=== PATIENT | female | born 1995 | race Caucasian/White ===

== ENCOUNTER 2019-11-19 16:03 | Outpatient (RCR) | payer BC, SELFPAY ==
[2019-11-19 16:58] LABS: Beta HCG Quantitative < 2.39 mIU/ML
== END 2020-02-17 23:59 | disposition home or self-care (01) ==
LOC: ANHLAB 16:03
PROVIDERS: PCP Pediatrics; Visit Provider Advanced Practice Midwife
DX: O20.0 Threatened abortion (principal); Z3A.00 Weeks of gestation of pregnancy not specified
CPT/HCPCS: 36415; 84702

== ENCOUNTER 2020-07-07 11:57 | Observation (INO) | payer BC, OTHER, SELFPAY ==
[2020-07-07] VITALS (11 sets, daily range): BP systolic 115–118; BP diastolic 62–69; PULSE 98–111; O2SAT 100; BMI 24.5
[2020-07-07 12:13] LABS: Glucose Point of Care 110 (65-105)
--- NOTE | 2020-07-07 12:29 | OBADM ---
This patient, Guerda Lyn, admitted to the OB room OB Post 116 for observation. Patient/family oriented to hospital policies and general routines including ID bracelet, bed and alarms, visiting hours, pain management, procedures, bathroom and other care routines, personal items, smoking policy, room service/diet, and visiting hours. Patient/Family are encouraged to report perceived risks to care and to ask questions if they do not understand what they are told or what they should do.
--- NOTE | 2020-07-07 12:32 | PC.NURSE ---
1213- Spoke with Mamadou Bird CNM regarding patient admission for observation. patient states she was walking around [address] and became lightheaded, dizzy and short of breath. Vitals all WNL. Blood sugar 110. Patient states she drank some orange juice after leaving the store and felt a little better. Per Mamadou Bird, monitor patient for duration of NST and discharge to home after. patient to call the office if it happens again.
--- NOTE | 2020-07-09 17:47 | PM.OBTRLD ---
OB - Triage/Final Diagnosis Visit Information Date of evaluation: 07/07/20 Evaluation Laboratory results: Laboratory Tests 07/07/20 12:10 POC Capillary Glucose 110
--- NOTE | 2020-07-10 07:43 | PM.OBTRLD ---
OB - Triage/Final Diagnosis Visit Information Date of evaluation: 07/07/20 Reason for evaluation: decreased movement Evaluation Laboratory results: Laboratory Tests 07/07/20 12:10 POC Capillary Glucose 110
== END 2020-07-07 13:00 | disposition home or self-care (01) ==
PROVIDERS: Admitting Provider Obstetrics & Gynecology; PCP Pediatrics; Visit Provider Obstetrics & Gynecology
DX: O36.8190 Decreased fetal movements, unspecified trimester, not applicable or unspecified (principal); Z3A.00 Weeks of gestation of pregnancy not specified
CPT/HCPCS: G0378; G0379

== ENCOUNTER 2020-07-24 04:20 | Observation (INO) | payer BC, OTHER, SELFPAY ==
[2020-07-24 04:33] VITALS: TEMP 36.6
[2020-07-24 04:34] VITALS: BP 122/74; PULSE 125
--- NOTE | 2020-07-24 04:43 | OBADM ---
This patient, Guerda Lyn, admitted to the OB room OB Post 117 for observation. Patient/family oriented to hospital policies and general routines including ID bracelet, bed and alarms, visiting hours, pain management, procedures, bathroom and other care routines, personal items, smoking policy, room service/diet, and visiting hours. Patient/Family are encouraged to report perceived risks to care and to ask questions if they do not understand what they are told or what they should do.
[2020-07-24 04:45] VITALS: BP 112/74; PULSE 131; BMI 26.3
[2020-07-24 05:00] VITALS: BP 115/72; PULSE 135
[2020-07-24 05:10] LABS: Add Urine Microscopic? YES; Appearance Urine Cloudy (Clear); Bacteria Urine Trace /hpf; Bilirubin Urine Negative (Negative); Blood Urine 1+ (Negative); Color Urine Straw (Yellow); Glucose Urine UA Negative (Negative); Ketones Urine Negative (Negative); Leukocyte Esterase Ur Trace LEU/UL (NEGATIVE); Nitrate Urine Negative (Negative); Protein Urine Negative (Negative); RBC Urine 0-2 /hpf (0-2); Specific Grav Ur 1.006 (1.001-1.035); Squamous Epithelial Cell Urine Many /hpf (Few); Urobilinogen Urine Negative mg/dL (<2.0)
[2020-07-24 05:15] VITALS: BP 114/68; PULSE 100
[2020-07-24 07:28] VITALS: BP 115/73; PULSE 92
--- NOTE | 2020-07-24 07:59 | PM.IMHP ---
H&P: HPI History of Present Illness Date/Time: 07/24/20 07:59 Chief complaint: Back pain Narrative: Guerda Lyn is a 24 year old femaleGravida 2 para 1001 at 35 weeks gestation who presents for uterine pain. She has repetitive uterine cramping sensation. She denies any loss of fluid or vaginal bleeding. Reports good movement. She denies any nausea, vomiting, fever, chills. She denies any urinary symptoms. She denies any headaches, blurry vision, epigastric pain. Review of Systems Constitutional: Constitutional: Reports no additional constitutional complaints, Denies fatigue, Denies headache(s), Denies lethargy and Denies weakness Eyes: Eyes: Reports no additional eye complaints, Denies blurry vision and Denies photophobia ENT: Reports as per HPI, Denies headache(s) and Denies neck pain Cardiovascular: Cardiovascular: Denies chest pain, Denies diaphoresis, Denies leg edema, Denies palpitations and Denies dyspnea Respiratory: Respiratory: Denies hemoptysis, Denies dyspnea and Denies wheezing Gastrointestinal: Gastrointestinal: Denies abdominal pain, Denies melena, Denies bloating, Denies hematochezia, Denies nausea and Denies vomiting Genitourinary: Genitourinary: Reports no additional female genitourinary complaints Musculoskeletal: Musculoskeletal: Denies joint swelling, Denies neck pain, Denies numbness and Denies stiffness Neurologic: Denies Abnormal speech present, Denies confusion, Denies headache(s), Denies numbness and Denies weakness Psychiatric: Psychiatric: Denies anxiety, Denies confusion, Denies depression, Denies homicidal ideation and Denies suicidal ideation Endocrine: Endocrine: Denies fatigue and Denies palpitations Allergic/Immunologic: Allergic/Immunologic: Denies wheezing Meds Home Medications and Allergies Home Medications Medication Instructions Recorded Confirmed Type Daily 1 pkg PO DAILY 07/07/20 07/07/20 History Allergies Allergy/AdvReac Type Severity Reaction Status Date / Time No Known Allergies Allergy Unverified 12/13/12 08:58 Vital Signs Vital Signs - 24 hr 07/24/20 04:33 07/24/20 04:34 07/24/20 04:45 Temperature 98 F Pulse Rate 125 H 131 H Blood Pressure 122/74 112/74 07/24/20 05:00 07/24/20 05:15 07/24/20 07:28 Temperature Pulse Rate 135 H 100 92 Blood Pressure 115/72 114/68 115/73 Exam Const: General: healthy appearing, comfortable and no acute distress; No confusion Orientation/consciousness: No confusion Eyes: Direct Ophthalmoscopy: No photophobia Resp: Auscultation: clear to auscultation bilaterally, no rales, no rhonchi and no wheezes Cardio: Rate: regular rate Heart sounds: no click, no murmurs and no rubs GI: Inspection: non-distended GI Palp: No abdominal tenderness Auscultation: normal bowel sounds Neuro: General: No confusion Speech: No Abnormal speech present Extrem: General: normal to inspection, no pedal edema and no calf tenderness H&P: Results Labs Labs: Urine 07/24/20 Range/Units 04:55 Urine Color Straw (Yellow) Urine Appearance Cloudy H (Clear) Urine pH 7.0 (5.0-9.0) Ur Specific [place] 1.006 (1.001-1.035) Urine Protein Negative (Negative) mg/dL Urine Glucose (UA) Negative (Negative) mg/dL Assessment and Plan Assessment and plan (1) contractions: Code(s): O47.9 - False labor, unspecified Status: Acute Assessment and Plan: this patient is a 24-year-old 2 para 1001 at 35 weeks gestation with uterine cramping. There is no cervical change. Her cervix is closed. She has reassuring status. She may have urinary tract infection. Will treat as outpatient. She will follow up in 4 days.
== END 2020-07-24 08:38 | disposition home or self-care (01) ==
PROVIDERS: Admitting Provider Obstetrics & Gynecology; Visit Provider Obstetrics & Gynecology
DX: O47.03 False labor before 37 completed weeks of gestation, third trimester (principal); O99.89 Other specified diseases and conditions complicating pregnancy, childbirth and the puerperium; M54.9 Dorsalgia, unspecified; Z3A.35 35 weeks gestation of pregnancy
CPT/HCPCS: 81001; 87086; 87088; G0378; G0379

== ENCOUNTER 2020-08-15 09:56 | Inpatient (IN) | payer BC, OTHER, SELFPAY ==
[2020-08-15] VITALS (60 sets, daily range): BP systolic 74–191; BP diastolic 34–166; PULSE 25–244; RESP 16–20; TEMP 36.1–37.1; O2SAT 71–100; BMI 26.2
--- NOTE | 2020-08-15 10:32 | LDADM ---
This patient, Guerda Lyn, was admitted to Labor/Delivery/Recovery 120 on 08/15/20 at 09:56. Plans for primary section, pain management and were discussed with patient. Patient/family oriented to hospital policies and general routines including ID bracelet, bed and alarms, visiting hours, pain management, procedures, bathroom and other care routines, personal items, smoking policy, room service/diet and guest tray routines, infant security routines, and visiting hours. Patient/Family are encouraged to report perceived risks to care and to ask questions if they do not understand what they are told or what they should do. See OBIX for further documentation.
[2020-08-15] MEDS: LACTATED RINGERS 1,000 ML 125 ML IV CONT ×2 (10:37→11:48)
[2020-08-15 10:53] LABS: Basophils Percent Auto 0.3 % (0.2-1.2); Eosinophils Percent Auto 0.3 % (0-4.4); Hemoglobin 10.7 g/dL (12.0-15.0); Immature Granulocyte Absolute 0.03 K/mm3 (0.00-0.031); Immature Granulocyte Percent A 0.4 % (0-0.5); Lymphocytes Absolute Auto 1.25 K/mm3 (0.9-3.2); Lymphocytes Percent Auto 15.9 % (18.3-44.2); Mean Corpuscular HGB Conc 31.5 g/dl (32-36); Mean Corpuscular Hemoglobin 24.2 pg (26-34); Mean Corpuscular Volume 76.7 fl (80-100); Monocytes Absolute Auto 0.5 K/mm3 (0.1-0.6); Monocytes Percent Auto 6.6 % (2.6-8.5); Neutrophils Percent Auto 76.5 % (45.5-73.1); Platelet Count Result 226 k/mm3 (150-375); Red Blood Count 4.43 M/mm3 (4.2-5.4); White Blood Count 7.9 K/mm3 (4.5-10.0)
--- NOTE | 2020-08-15 11:06 | WPDANESEPPF ---
Anes - Initial Pre Proc Eval Procedure: Operation Date: 08/15/20 12:00 Proposed Procedures p Primary Section - China Simmons MD Date/Time: 08/15/20 11:06 Surgeon: China Simmons MD Pre Op Diagnosis: Scheduled C Section Patient Data Age: 25 Gender: F Height: 5 ft 3 in Weight: 67 kg Last Vital Signs Pulse 118 H 08/15/20 10:45 BP 115/74 08/15/20 10:45 Allergies Allergy/AdvReac Type Severity Reaction Status Date / Time No Known Allergies Allergy Unverified 12/13/12 08:58 Home Medications Medication Instructions Recorded Confirmed Type Daily 1 pkg PO DAILY 07/07/20 07/24/20 History nitrofurantoin monohyd/m-cryst 100 mg PO Q12H 7 Days #14 cap 07/24/20 07/24/20 Rx [Macrobid] Laboratory Tests 08/15/20 08/15/20 10:21 10:21 WBC 7.9 K/mm3 K/mm3 (4.5-10.0) RBC 4.43 M/mm3 M/mm3 (4.2-5.4) Hgb 10.7 g/dL L g/dL (12.0-15.0) Hct 34.0 % L % (37.0-47.0) MCV 76.7 fl L fl (80-100) MCH 24.2 pg L pg (26-34) MCHC 31.5 g/dl L g/dl (32-36) RDW 14.0 % % (11.5-14.5) Plt Count 226 k/mm3 k/mm3 (150-375) MPV 10.0 fl fl (7.4-10.4) Immature Gran % (Auto) 0.4 % % (0-0.5) Neut % (Auto) 76.5 % H % (45.5-73.1) Lymph % (Auto) 15.9 % L % (18.3-44.2) [place] % (Auto) 6.6 % % (2.6-8.5) Eos % (Auto) 0.3 % % (0-4.4) Baso % (Auto) 0.3 % % (0.2-1.2) Lymph # (Auto) 1.25 K/mm3 K/mm3 (0.9-3.2) [place] # (Auto) 0.5 K/mm3 K/mm3 (0.1-0.6) Eos # (Auto) 0.0 K/mm3 K/mm3 (0-0.3) Baso # (Auto) 0.0 K/mm3 K/mm3 (0.0-0.1) Abs Immat Gran (auto) 0.03 K/mm3 K/mm3 (0.00-0.031) Absolute Neuts (auto) 6.0 K/mm3 K/mm3 (1.3-6.7) Absolute Nucleated RBC 0.0 K/mm3 K/mm3 (0.0-0.012) Nucleated RBC % 0.0 % % (0.0-0.2) RPR Pending Patient hx anesthesia problems: none Family hx anesthesia problems: none PMFSH Family History Family History Father Diabetes mellitus Social History Social History Smoking status: Former smoker Tobacco type: cigarettes and e-cigarettes/vaping Substance use: never Gender identity (if verbalized by the patient): Female Spiritual care concerns: No Anes - Eval Final PreProcedure Day of Procedure 08/15/20 11:06 Patient weight: normal Heart: regular rate and rhythm Lungs: clear to auscultation Airway: Mallampati scale class II Neurological: alert and oriented Last oral intake: >/= 8 hours ASA classification: II Emergent: no Anesthetic plan: proceed Anesthesia type and monitoring: regional spinal and standard monitoring Informed Consent: The patient's anesthetic plan and its attendant risks and benefits were discussed with the patient/family/POA. Questions were solicited and answers provided to the satisfaction of the patient/family/POA.
[2020-08-15] MEDS: ceFAZolin 2 GM/D5W 50 ML 2 GM/50 ML BAG IVPB (12:23)
--- NOTE | 2020-08-15 13:31 | P.OP_ITS ---
Procedure Note - Detailed Date of procedure: 08/15/20 Pre-op diagnosis: Scheduled C Section Term gestation, Breech Post-op diagnosis: same Procedure performed: low-transverse delivery Description of procedure: The patient was taken the operating room. She was prepped and draped in the dorsal supine position with leftward tilt after induction of spinal anesthetic. When anesthesia was found to be adequate a low- transverse skin incision was made and carried down to the level the fascia with the knife. The fascial incision was made at the midline with a scalpel. The fascial incision was extended laterally with Bello scissors. The fascia was tented upward superior and inferior with Joshua clamps. The rectus muscles were dissected off bluntly. The rectus muscles at the midline. The preper itoneal fat was dissected bluntly at the superior aspect of the separate the rectus muscles. The peritoneal cavity was entered bluntly in the same area. The peritoneal incision was extended superior and inferior with good visualization of bladder. Bladder blade was inserted. A low-transverse incision was made on the uterus with the scalpel. It was carried down the level of the amniotic cavity with a knife. The amniotic cavity bluntly. The uterine incision was made laterally with blunt traction. The infant was delivered. The cord was clamped and cut. The infant was handed off to waiting pediatric staff. Cord bloods were obtained. The placenta was removed manually. The uterus was exteriorized. Uterus cleared of all clots and debris. Uterus closed in 0 Vicryl in a running locked fashion. An imbricating layer of 0 Vicryl was also placed on the to bolster the closure. The uterus was returned to the abdomen. The gutters were cleared of all clots and debris. The fascia was closed 0 Vicryl in a running fashion. Subcutaneous tissue was irrigated and bleeding areas were cauterized. The skin was closed with subcuticular absorbable shantal. The incision was covered with derma mckenzie. The patient tolerated the procedure well. She was taken recovery room stable condition. Sponge, lap, needle counts were correct x2. Anesthesia: spinal Surgeon: China Simmons MD Estimated blood loss (mL): 740 Drains: No Packing: No Pathology: none sent Complications: No immediate complications Condition: stable Disposition: floor Findings: Normal maternal anatomy. Average size infant with normal Apgars, elaine breech
[2020-08-15] MEDS: OXYTOCIN 30 UNITS/NS 500 ML 30 UNITS/500 ML BAG 125 UNITS IV CONT (13:57)
[2020-08-15] MEDS: miSOPROStol 200 MCG TABLET 1000 MCG RECTAL (14:24)
--- NOTE | 2020-08-15 15:43 | OBPPTRN ---
Patient transferred to post room # 291 via bed. Support person present. Oriented to unit, room, information board, rooming in, admission packet and security measures. Patient verbalizes understanding.
[2020-08-15] MEDS: HYDROcodone/acetaminophen (*CRX) 5-325 MG TABLET 1 TAB PO ×2 (17:13→23:40)
[2020-08-15] MEDS: DEXTROSE 5%/0.45% SOD CHL 1,000 ML 125 ML IV CONT (18:16)
[2020-08-15] MEDS: IBUPROFEN 600 MG TABLET PO (23:40)
[2020-08-16 04:50] VITALS: BP 111/82; PULSE 91; RESP 16; TEMP 36.8
[2020-08-16] MEDS: IBUPROFEN 600 MG TABLET PO ×3 (04:57→19:04)
[2020-08-16] MEDS: HYDROcodone/acetaminophen (*CRX) 5-325 MG TABLET 1 TAB PO ×5 (04:57→19:03)
[2020-08-16 06:03] LABS: Basophils Percent Auto 0.2 % (0.2-1.2); Eosinophils Percent Auto 0.1 % (0-4.4); Hemoglobin 7.2 g/dL (12.0-15.0); Immature Granulocyte Absolute 0.05 K/mm3 (0.00-0.031); Immature Granulocyte Percent A 0.4 % (0-0.5); Lymphocytes Absolute Auto 1.39 K/mm3 (0.9-3.2); Lymphocytes Percent Auto 12.3 % (18.3-44.2); Mean Corpuscular HGB Conc 31.3 g/dl (32-36); Mean Corpuscular Volume 76.7 fl (80-100); Mean Platelet Volume 10.2 fl (7.4-10.4); Monocytes Absolute Auto 0.9 K/mm3 (0.1-0.6); Monocytes Percent Auto 7.7 % (2.6-8.5); Neutrophils Percent Auto 79.3 % (45.5-73.1); Platelet Count Result 175 k/mm3 (150-375); Red Cell Distribution Width 13.9 % (11.5-14.5); White Blood Count 11.3 K/mm3 (4.5-10.0)
[2020-08-16 08:15] VITALS: BP 119/68; PULSE 93; RESP 12; TEMP 36.6; O2SAT 100
[2020-08-16] MEDS: DOCUSATE SODIUM 100 MG CAPSULE PO ×2 (08:15→16:10)
[2020-08-16] MEDS: POLYSACCHARIDE IRON COMPLEX 150 MG CAPSULE PO ×2 (08:15→16:10)
[2020-08-16] MEDS: MULTIVIT/MIN/PREN/FOL AC/IRON TABLET 1 TAB PO (08:15)
--- NOTE | 2020-08-16 08:25 | P.PNOB_ITS ---
OB - PN: Subj Subjective Date/time seen: 08/16/20 08:25 Interval history: had some increased bleeding post delivery, doing well Patient comments: no complaints [place] baby status: doing well OB - PN: Obj Data Labs CBC & Chem 7: 08/16/20 05:01 Labs: Laboratory Results - last 24 hr 08/15/20 08/15/20 08/16/20 10:21 10:21 05:01 WBC 7.9 11.3 H RBC 4.43 3.00 L Hgb 10.7 L 7.2 L D Hct 34.0 L 23.0 L MCV 76.7 L 76.7 L MCH 24.2 L 24.0 L MCHC 31.5 L 31.3 L RDW 14.0 13.9 Plt Count 226 175 MPV 10.0 10.2 Immature Gran % (Auto) 0.4 0.4 Neut % (Auto) 76.5 H 79.3 H Lymph % (Auto) 15.9 L 12.3 L [place] % (Auto) 6.6 7.7 Eos % (Auto) 0.3 0.1 Baso % (Auto) 0.3 0.2 Lymph # (Auto) 1.25 1.39 [place] # (Auto) 0.5 0.9 H Eos # (Auto) 0.0 0.0 Baso # (Auto) 0.0 0.0 Abs Immat Gran (auto) 0.03 0.05 H Absolute Neuts (auto) 6.0 9.0 H Absolute Nucleated RBC 0.0 0.0 Nucleated RBC % 0.0 0.0 Blood Type A Positive Antibody Screen Negative OB - PN A/P Plan day: 1 Plan: routine care Time Spent With Patient Time: Total time spent is greater than 50% in coordination of care (as documented) at patient's floor/unit and/or counseling patient: Exam Const: General: comfortable Resp: Effort & Inspection: normal respiratory effort Psych: Appearance: grossly normal Affect: normal affect Attitude: cooperative Judgement: Good judgement present (Psych)
[2020-08-16 12:00] VITALS: BP 128/63; PULSE 84; RESP 14; TEMP 36.8; O2SAT 100
[2020-08-16] MEDS: LANOLIN (LANSINOH) 7.5 GM CREAM 1 APPLIC TOPICAL (12:09)
--- NOTE | 2020-08-16 12:32 | WPDANLDPN2 ---
Anes-Prog Note L&D Date/Time: 08/16/20 12:32 Comfortable throughout: labor and section Neuraxial method: epidural Epidural/Spinal procedure site: clean & non-tender Neuro status: Neuro function grossly intact. Cardiovascular status: normal Respiratory status: normal Airway patency: baseline Mental status: baseline Post-Op hydration status: normal Vital Signs: Last Vital Signs Temp 36.6 C 08/16/20 08:15 Pulse 93 08/16/20 08:15 Resp 12 08/16/20 08:15 BP 119/68 08/16/20 08:15 Pulse Ox 100 08/16/20 08:15 Pain score (VAS): 0/10. Patient resting in bed at time of assessment, appears comfortable. Support person at bedside. No addition concerns or issues addressed by patient at time of assessment. I/O: Intake & Output 08/15/20 08/16/20 08/16/20 23:59 07:59 15:59 Intake Total 1300 1200 Output Total 1800 1300 550 Balance -500 -100 -550 Post-procedural complaints: none and nausea (relief with PRN medication) Patient feedback: Patient satisfied with anesthetic care.
--- NOTE | 2020-08-16 12:34 | WPDANLDNPN2 ---
Anes-Prog Note L&D-Neuraxial Date/Time: 08/16/20 12:34 Neuraxial medications: epidural PF morphine Opiod-related complaints: nausea (nausea, relief with medication. ) Patient feedback: Patient satisfied with post-operative pain management.
--- NOTE | 2020-08-16 12:35 | WPDANLDNPN2 ---
Anes-Prog Note L&D-Neuraxial Date/Time: 08/16/20 12:35 Neuraxial medications: intrathecal PF morphine Opiod-related complaints: nausea Patient feedback: Patient satisfied with post-operative pain management.
[2020-08-16 18:50] VITALS: BP 107/54; PULSE 96; RESP 16; TEMP 36.7
[2020-08-17] MEDS: HYDROcodone/acetaminophen (*CRX) 5-325 MG TABLET 1 TAB PO ×2 (01:45→09:36)
[2020-08-17] MEDS: IBUPROFEN 600 MG TABLET PO ×2 (01:45→09:36)
[2020-08-17 07:30] VITALS: BP 107/65; PULSE 84; RESP 20; TEMP 36.6
[2020-08-17] MEDS: DOCUSATE SODIUM 100 MG CAPSULE PO (09:35)
[2020-08-17] MEDS: POLYSACCHARIDE IRON COMPLEX 150 MG CAPSULE PO (09:35)
[2020-08-17] MEDS: MULTIVIT/MIN/PREN/FOL AC/IRON TABLET 1 TAB PO (09:36)
[2020-08-17] MEDS: TETANUS,DIPHTHERIA,AC PERTUSSIS ADULT (0.5 ML) BOOSTRIX IM (09:37)
--- NOTE | 2020-08-17 09:48 | PM.OBPNVD ---
OB - PN: Subj Subjective Date/time seen: 08/17/20 09:48 Interval history: had some increased bleeding post delivery, doing well Patient comments: no complaints [place] baby status: doing well OB - PN: Obj Data Labs CBC & Chem 7: 08/16/20 05:01 OB - PN A/P Plan day: 2 Plan: discharge home Time Spent With Patient Time: Total time spent is greater than 50% in coordination of care (as documented) at patient's floor/unit and/or counseling patient: Pt desires discharge today Exam Const: General: comfortable Resp: Effort & Inspection: normal respiratory effort Psych: Appearance: grossly normal Affect: normal affect Attitude: cooperative Judgement: Good judgement present (Psych)
[2020-08-18 06:52] LABS: Rapid Plasma Reagin Non-Reactive (NonReactive)
[2020-08-19 11:20] VITALS: BP 118/78; PULSE 84; RESP 18; TEMP 36.9
--- NOTE | 2020-09-12 07:33 | PM.IMHP ---
H&P: HPI History of Present Illness Date/Time: 09/12/20 07:33 Chief complaint: Scheduled C Section Narrative: Guerda Lyn is a 25 year old female , multiparous, at 39 weeks gestation who presents for a repeat delivery. She has a history of previous delivery. She denies any loss of fluid, vaginal bleeding, contractions. She denies any headache, blurry vision, epigastric pain. She denies any chest pain or shortness of breath. She denies any nausea, vomiting, fever, chills. Review of Systems Constitutional: Constitutional: Reports no additional constitutional complaints, Denies fatigue, Denies headache(s), Denies lethargy and Denies weakness Eyes: Eyes: Reports no additional eye complaints, Denies blurry vision and Denies photophobia ENT: Reports as per HPI, Denies headache(s) and Denies neck pain Cardiovascular: Cardiovascular: Denies chest pain, Denies diaphoresis, Denies leg edema, Denies palpitations and Denies dyspnea Respiratory: Respiratory: Denies hemoptysis, Denies dyspnea and Denies wheezing Gastrointestinal: Gastrointestinal: Denies abdominal pain, Denies melena, Denies bloating, Denies hematochezia, Denies nausea and Denies vomiting Genitourinary: Genitourinary: Reports no additional female genitourinary complaints Musculoskeletal: Musculoskeletal: Denies joint swelling, Denies neck pain, Denies numbness and Denies stiffness Neurologic: Denies Abnormal speech present, Denies confusion, Denies headache(s), Denies numbness and Denies weakness Psychiatric: Psychiatric: Denies anxiety, Denies confusion, Denies depression, Denies homicidal ideation and Denies suicidal ideation Endocrine: Endocrine: Denies fatigue and Denies palpitations Allergic/Immunologic: Allergic/Immunologic: Denies wheezing [facility] Family History Family History Father Diabetes mellitus Social History Social History Smoking status: Former smoker Tobacco type: cigarettes and e-cigarettes/vaping Substance use: never Gender identity (if verbalized by the patient): Female Spiritual care concerns: No Meds Home Medications and Allergies Home Medications Medication Instructions Recorded Confirmed Type Daily 1 pkg PO DAILY 07/07/20 07/24/20 History polysaccharide iron complex 150 mg PO BIDWM #30 cap 08/17/20 Rx Allergies Allergy/AdvReac Type Severity Reaction Status Date / Time No Known Allergies Allergy Unverified 12/13/12 08:58 Exam Const: General: healthy appearing, comfortable and no acute distress; No confusion Orientation/consciousness: No confusion Eyes: Direct Ophthalmoscopy: No photophobia Resp: Auscultation: clear to auscultation bilaterally, no rales, no rhonchi and no wheezes Cardio: Rate: regular rate Heart sounds: no click, no murmurs and no rubs GI: Inspection: non-distended GI Palp: No abdominal tenderness Auscultation: normal bowel sounds Neuro: General: No confusion Speech: No Abnormal speech present Extrem: General: normal to inspection, no pedal edema and no calf tenderness Assessment and Plan Assessment and plan (1) Previous section: Code(s): Z98.891 - History of uterine scar from previous surgery Status: Acute (2) Term : Code(s): Z34.90 - Encounter for supervision of normal , unspecified, unspecified trimester Status: Acute Assessment and Plan: this patient is a 25-year-old multipara at term with previous delivery. We have agreed to perform delivery. She understands the risks, benefits, and alternatives. She has completed the informed consent process and is ready to proceed.
--- NOTE | 2020-09-12 07:35 | PM.OBDSVD ---
DS: Admitting Diagnosis Admitting Diagnosis Admitting Diagnosis: Scheduled C Section OB - DS: Summary OB Procedures : None OB Procedures Intrapartum: OB Procedures: : None Peripartum Data Delivery Method: Section Procedures: Procedures Operation Date: 08/15/20 12:00 Actual Procedures Side Surgeon p Primary Section China Simmons MD Status at Discharge Functional status at discharge: independent ambulation Time Spent with Patient Time attestation: Total time spent providing and/or coordinating discharge services: DS: Data Data Completed and Pending Completed studies during hospitalization: Pending at discharge 08/15/20 12:50 Surgical [PTH] Routine Discharge Plan Discharge Attending physician on discharge: China Simmons Consulting providers: Deb Bird Discharging Clinician: Deb Bird Patient Disposition: Home, Self-Care Activity: pelvic rest Diet: regular Discharge Instructions: Education: Mom and Baby Guide Given to: Mother Follow-Up: Call your delivering provider's office for an appointment to be seen. Mom and baby should come to the [facility] for the follow-up appointment. Appointment Date/Time: August 19, 2020 at 11:00 am What to expect at your follow-up visit: Physical Assessment Call [phone] if you are unable to keep your appointment time. BREAST CARE: * Wear a snug supportive bra. * For engorgement discomfort: Breast Feeding: * Apply warm moist washcloths * Express milk as needed to relieve engorgement * Wear loose clothing * For sore nipples: * Identify correct latch-on * Apply warm moist washcloths before and after nursing * Air dry nipples after nursing * May apply Lansinoh cream to nipples ABDOMINAL INCISION: * Allow incision to air dry * Do NOT use lotions for powders on your incision * When showering, allow soap and water to run over the incision, but do not wash incision PERINEAL CARE: * Until bleeding stops, use your claribel bottle after urinating * Change your pad frequently throughout the day * No tub baths until seen by your physician - You may shower ACTIVITY: * Rest as much as possible. * Do not exercise or lift anything heavier than your baby (such as laundry or other children.) * Avoid stairs or driving as much as possible. * Do not put anything into the vagina. No douching, tampons, or sexual activity until seen by physician. NOTIFY PHYSICIAN IF YOU HAVE ANY QUESTIONS OR IF ANY OF THE FOLLOWING SYMPTOMS OCCUR: * If your incision becomes red, swollen, or more painful than what you have experienced in the hospital. * If your vaginal bleeding becomes foul smelling. * If your vaginal bleeding becomes more heavy than a period or if your bleeding changes from pink to bright red. However, you may pass an occasional walnut-sized clot once or twice for the first week . * If you experience a sharp, shooting pain in you calves. * If you discover a hard, reddened area on your breast or if you experience flu-like symptoms. DIET: * Eat regular, well-balanced meals. * Drink plenty of fluids daily. If , drink to thirst. Stand Alone Forms: General Discharge Information Follow-up/Referrals: China Simmnos MD [Physician] - 1 Week Discharge Medications: New polysaccharide iron complex 150 mg iron Capsule 150 mg PO BIDWM Qty: 30 RF: 0 Continued Daily [id number] mg-mcg-mg Combo Pack 1 pkg PO DAILY RF: 0 Discontinued nitrofurantoin monohyd/m-cryst [Macrobid] 100 mg capsule 100 mg PO Q12H 7 Days Qty: 14 RF: 0 Date of admission: 08/15/20 09:56 Primary Care Provider: PHYSICIAN,HEALTH CARE ASSISTANT Admitting Provider: China Simmons Attending physician on admission: China Simmons
== END 2020-08-17 12:36 | disposition home or self-care (01) | DRG 788 ==
LOC: ANHLDR 10:08 → ANHOB2 16:19
PROVIDERS: Admitting Provider Obstetrics & Gynecology; Visit Provider Obstetrics & Gynecology
PROC: 10D00Z1 Extraction of Products of Conception, Low, Open Approach (ICD-10-PCS; CPT 59514; principal; 2020-08-15 12:00)
DX: O32.1XX0 Maternal care for breech presentation, not applicable or unspecified (principal); Z3A.39 39 weeks gestation of pregnancy; Z37.0 Single live birth; O34.211 Maternal care for low transverse scar from previous cesarean delivery; Z87.891 Personal history of nicotine dependence
CPT/HCPCS: 36415; 85025; 86592; 86850; 86900; 86901; 88307; 90715; A9270; J0131; J0690; J1100; J1885; J2274; J2370; J2405; J2590; J2704; J7120

== ENCOUNTER 2020-10-10 01:18 | Outpatient (CLI) | payer BC, OTHER, SELFPAY ==
[2020-10-10 21:25] LABS: SARS-CoV-2 RNA PCR Negative
== END 2020-10-10 01:19 | disposition home or self-care (01) ==
LOC: ANHCOVIDDT 01:20
PROVIDERS: Visit Provider Obstetrics & Gynecology
DX: Z01.812 Encounter for preprocedural laboratory examination (principal); Z11.59 Encounter for screening for other viral diseases
CPT/HCPCS: 87635; C9803; U0003

== ENCOUNTER 2020-10-13 01:25 | Day surgery (SDC) | payer OTHER, SELFPAY ==
[2020-09-29 14:54] VITALS: BMI 22.8
[2020-10-13] VITALS (8 sets, daily range): BP systolic 94–112; BP diastolic 51–74; PULSE 50–84; RESP 11–16; TEMP 35.9–36.2; O2SAT 100
[2020-10-13] MEDS: LACTATED RINGERS 1,000 ML 30 ML IV CONT (10:41)
[2020-10-13] MEDS: KETOROLAC 15 MG/ML VIAL (*BKC) IV PUSH (10:43)
[2020-10-13] MEDS: ACETAMINOPHEN 500 MG TABLET 1000 MG PO (10:43)
--- NOTE | 2020-10-13 10:51 | WPDANESEPPF ---
Anes - Initial Pre Proc Eval Procedure: Operation Date: 10/13/20 12:00 Proposed Procedures p Laparoscopic Bilateral Tubal Ligation With Cautery - China Simmons MD Date/Time: 10/13/20 10:51 Surgeon: China Simmons MD Pre Op Diagnosis: Contraceptive Care Management Patient Data Age: 25 Gender: F Height: 5 ft 2 in Weight: 56.6 kg Last Vital Signs Temp 35.9 C L 10/13/20 10:20 Pulse 84 10/13/20 10:20 Resp 16 10/13/20 10:20 BP 103/66 10/13/20 10:20 Pulse Ox 100 10/13/20 10:20 Allergies Allergy/AdvReac Type Severity Reaction Status Date / Time No Known Allergies Allergy Unverified 10/13/20 10:18 Home Medications Medication Instructions Recorded Confirmed Type No Home Medications 09/29/20 10/13/20 History Patient hx anesthesia problems: none Family hx anesthesia problems: none PMFSH Past Medical History Medical History Anxiety Family History Family History Father Diabetes mellitus Social History Social History Smoking status: Former smoker Tobacco type: cigarettes Second hand tobacco smoke exposure: No Additional smoking assessment comments: social smoker stopped 2018 Alcohol intake: current Drinks per week: 2 Substance use: never Living arrangements: with family Gender identity (if verbalized by the patient): Female Spiritual care concerns: No Anes - Eval Final PreProcedure Day of Procedure 10/13/20 10:51 Patient weight: normal Heart: regular rate and rhythm Lungs: clear to auscultation Airway: Mallampati scale class II Neurological: alert and oriented Last oral intake: >/= 8 hours ASA classification: II Emergent: no Anesthetic plan: proceed Anesthesia type and monitoring: general ETT and standard monitoring Informed Consent: The patient's anesthetic plan and its attendant risks and benefits were discussed with the patient/family/POA. Questions were solicited and answers provided to the satisfaction of the patient/family/POA.
--- NOTE | 2020-10-13 11:46 | WPDHPUPDATE1 ---
History and Physical Update Update Date/Time: 10/13/20 11:46 History and Physical has been reviewed, including an updated exam of the patient. There are NO changes in the patient's condition. Risks, benefits, and alternatives have been discussed and questions answered. Patient agrees to proceed with procedure.
[2020-10-13] MEDS: ONDANSETRON INJ 4 MG/2 ML VIAL IV PUSH (12:55)
[2020-10-13] MEDS: fentaNYL CITRATE INJ (*CRX) 100 MCG/2 ML VIAL 25 MCG IV PUSH (12:59)
--- NOTE | 2020-10-13 17:29 | PM.PROC ---
Procedure Note - Detailed Date of procedure: 10/13/20 Pre-op diagnosis: Contraceptive Care Management Post-op diagnosis: same Procedure performed: Laparoscopic bilateral tubal ligation Description of procedure: Patient was taken the operating room. She has prepped draped in the dorsal lithotomy position after induction of general anesthesia. A 5 mm abdominal incision was made in left upper quadrant of the abdomen with scalpel. A 5 mm trocars inserted the intra-abdominal cavity under direct visualization of the scope. Pneumoperitoneum was achieved. A 5 mm periumbilical incision was made using a scalpel on the abdominal scan. A 5 mm trocar was inserted the intra-abdominal cavity under visualization of the scope. The fallopian tube was grasped with the bipolar cautery in the ampullary region. It was completely desiccated in a 1.5 cm area of the fallopian tube. This was performed in identical fashion on the contralateral side. The instruments were withdrawn. The pneumoperitoneum was reduced. The trocars were removed. The skin was closed with subcuticular 4 Monocryl. This incisions were covered with Dermabond. The patient tolerated the procedure well. She was taken to recover room in stable condition. Anesthesia: GETA Surgeon: China Simmons MD Estimated blood loss (mL): 10 Drains: No Packing: No Pathology: none sent Complications: No immediate complications Condition: stable Disposition: PACU Findings: Normal female pelvic anatomy.
== END 2020-10-13 14:20 | disposition home or self-care (01) ==
PROVIDERS: Visit Provider Obstetrics & Gynecology
PROC: (CPT 58671; principal; 2020-10-13 12:00)
DX: Z30.2 Encounter for sterilization (principal)
CPT/HCPCS: 58670; A9270; J0330; J1100; J1885; J2250; J2405; J2704; J3010; J7120

== ENCOUNTER 2025-11-07 10:50 | Emergency (ER) | payer SELFPAY ==
--- NOTE | ~2025-11-07 | XR_ITS ---
EXAMINATION: XR chest 1V portable 11/07/2025 11:14 INDICATION: Cough PROCEDURE: AP portable chest COMPARISON: No prior studies for comparison. FINDINGS: The lungs are clear. The cardiomediastinal silhouette is within normal limits. There are no pleural effusions. There is no pneumothorax suspected. IMPRESSION: 1: NO ACUTE CARDIOPULMONARY DISEASE. Reviewed, dictated and finalized at location O. [employer]ING MACHINE OPERATOR
[2025-11-07 10:50] VITALS: BP 128/80; PULSE 89; RESP 18; TEMP 36.4; O2SAT 100; O2SAT 99
--- NOTE | 2025-11-07 10:59 | ED_ITS ---
HPI - General Adult General Chief complaint: Upper Respiratory Infection Stated complaint: cough Time Seen by Provider: 11/07/25 10:55 History of Present Illness HPI narrative: Guerda is a 30F with a PMH of vaping that prestented to the ED not feeling well. She has had a persistent dry cough for over a month. However, over the last few days she has a worsening productive cough, dyspnea, fatigue, rhinorrhea and ear fullness. Her chest only hurts when she coughs. No fever, diarrhea or vommiting. Related Data Allergies Allergy/AdvReac Type Severity Reaction Status Date / Time No Known Allergies Allergy Verified 11/07/25 10:56 Review of Systems 2 Review of Systems: All systems reviewed & are unremarkable except as noted in HPI and below PMFSH Past Medical History Medical History Anxiety Family History Family History Father Diabetes mellitus Social History Social History Smoking status: Former smoker Tobacco type: cigarettes Second hand tobacco smoke exposure: No Additional smoking assessment comments: social smoker stopped 2019 Alcohol intake: current Drinks per week: 2 Substance use: never Living arrangements: with family Gender identity (if verbalized by the patient): Female Spiritual care concerns: No Exam 2 Const: General: cooperative, healthy appearing, comfortable, no acute distress, well developed, alert, awake and Physically active O rientation/consciousness: oriented to person, oriented to place and oriented to time HENMT: Head: normal to inspection, normocephalic and atraumatic Ears: h earing grossly normal bilaterally and external ears normal Face/Nose/Sinus: N ormal external nose present Eyes: General: appearance normal, both eyes and all related structures P eriorbital: periorbital findings normal Sclera: sclerae normal Pupils: E qual, round and reactive pupils present Neck: Neck: normal visual inspection Chest: Chest palpation & inspection: normal inspection of the chest Resp: Effort & Inspection: normal respiratory effort, able to speak in complete sentences and no respiratory distress Auscultation: clear to auscultation bilaterally Cardio: Jugular venous distension: no JVD Rate: regular rate Rhythm: r egular rhythm Skin: General skin exam: normal color and no rashes or lesions noted Neuro: General: oriented to person, oriented to place and oriented to time Cranial nerves: Yes Equal, round and reactive pupils present Extrem: General: normal to inspection Course Course Emergency Course: EXAMINATION: XR chest 1V portable 11/07/2025 11:14 INDICATION: Cough PROCEDURE: AP portable chest COMPARISON: No prior studies for comparison. FINDINGS: The lungs are clear. The cardiomediastinal silhouette is within normal limits. There are no pleural effusions. There is no pneumothorax suspected. IMPRESSION: 1: NO ACUTE CARDIOPULMONARY DISEASE. Viral testing negative Vital Signs Vital signs: Vital Signs Temperature 97.5 F L 11/07/25 10:50 Pulse Rate 89 11/07/25 10:50 Respiratory Rate 18 11/07/25 10:50 Blood Pressure 128/80 11/07/25 10:50 Pulse Oximetry 100 11/07/25 10:50 Oxygen Delivery Room Air 11/07/25 10:50 Temperature 97.5 F L 11/07/25 10:50 Pulse Rate 89 11/07/25 10:50 Respiratory Rate 18 11/07/25 10:50 Blood Pressure 128/80 11/07/25 10:50 Pulse Oximetry 99 11/07/25 10:50 Oxygen Delivery Room Air 11/07/25 10:50 MDM Differential Diagnosis Differential Diagnosis: Bronchitis vs URI vs COVID/Flu with pneumonia being less likely Lab Data 11/07/25 11:04 11/07/25 11:04 Labs: Lab Results 11/07/25 Range/Units 11:04 WBC 8.1 (4.8-10.8) K/mm3 RBC 4.71 (4.20-5.40) M/mm3 Hgb 13.8 (12.0-15.0) g/dL Hct 40.4 (35.0-49.0) % MCV 85.8 (78.0-102.0) fL MCH 29.3 (27.0-31.0) pg MCHC 34.2 (32-36) g/dL RDW 12.5 (11.6-14.4) % Plt Count 229 (150-420) K/mm3 MPV 9.8 (9.2-11.8) fl Immature Gran % (Auto) 0.1 H (0.0-0.0) % Neut % (Auto) 77.3 H (50.0-70.0) % Lymph % (Auto) 16.4 L (18.0-42.0) % [place] % (Auto) 5.3 (2.0-11.0) % Eos % (Auto) 0.7 L (1.0-6.0) % Baso % (Auto) 0.2 (0.0-1.0) % Lymph # (Auto) 1.33 (1.10-4.50) K/mm3 [place] # (Auto) 0.43 (0.10-0.90) K/mm3 Eos # (Auto) 0.06 (0.02-0.50) K/mm3 Baso # (Auto) 0.02 (0.00-0.10) K/mm3 Abs Immat Gran (auto) 0.01 H (0.00-0.00) K/mm3 Absolute Neuts (auto) 6.26 (1.70-7.20) K/mm3 Absolute Nucleated RBC 0.00 (0.00-0.00) K/mm3 Nucleated RBC % 0.0 (0-0.0) % Sodium 141 (137-145) mmol/L Potassium 3.5 (3.4-5.0) mmol/L Chloride 107 (98-107) mmol/L Carbon Dioxide 21 L (22-30) mmol/L Anion Gap 13 H (4-12) mmol/L BUN 8 (7-17) mg/dL Creatinine 0.81 (0.7-1.0) mg/dL Estim Creat Clear Calc 69 ml/min Estimated GFR > 60 (59 - ) Glucose 128 H (65-110) mg/dL Calculated Osmolality 292 (285-295) mOsm/kg Calcium 9.4 (8.4-10.2) mg/dL Influenza A (RT-PCR) Negative (Negative) Influenza B (RT-PCR) Negative (Negative) RSV (RT-PCR) Negative (Negative) SARS-CoV-2 RNA (RT-PCR) Negative (Negative) Imaging Data Radiologist's impression: ITS Impressions Chest X-Ray 11/07/25 11:15 IMPRESSION: 1: NO ACUTE CARDIOPULMONARY DISEASE. Discharge Plan Discharge Clinical Impression: Bronchitis Patient Disposition: Home Condition: Stable Instructions: Acute Bronchitis (ED) Patient Language: Khmer Prescriptions: New prednisone 50 mg tablet 50 mg PO DAILY Qty: 4 0RF doxycycline hyclate 100 mg tablet 100 mg PO BID Qty: 10 0RF No Action hydrocodone-acetaminophen 5-325 mg tablet 1 - 2 tablet PO Q4H PRN (Reason: pain) Qty: 10 0RF Follow-up/Referrals: UNKNOWN,DOCTOR [Non-Staff]
[2025-11-07 11:08] LABS: Hematocrit 40.4 % (35.0-49.0); Hemoglobin 13.8 g/dL (12.0-15.0); Immature Granulocyte Percent A 0.1 % (0.0-0.0); Lymphocytes Absolute Auto 1.33 K/mm3 (1.10-4.50); Mean Corpuscular HGB Conc 34.2 g/dL (32-36); Mean Corpuscular Hemoglobin 29.3 pg (27.0-31.0); Mean Corpuscular Volume 85.8 fL (78.0-102.0); Nucleated Red Blood Cells Absolute Auto 0.00 K/mm3 (0.00-0.00); Nucleated Red Blood Cells Perc 0.0 % (0-0.0); Platelet Count Result 229 K/mm3 (150-420); Red Blood Count 4.71 M/mm3 (4.20-5.40); White Blood Count 8.1 K/mm3 (4.8-10.8)
[2025-11-07 11:20] LABS: Anion Gap 13 mmol/L (4-12); Blood Urea Nitrogen 8 mg/dL (7-17); Calcium 9.4 mg/dL (8.4-10.2); Carbon Dioxide 21 mmol/L (22-30); Chloride 107 mmol/L (98-107); Estimated CRCL calculation 69 ml/min; Estimated Glomerular Filt Rate > 60; Glucose 128 mg/dL (65-110); Osmolality Calculated 292 mOsm/kg (285-295); Potassium 3.5 mmol/L (3.4-5.0); Sodium 141 mmol/L (137-145)
--- OUTSIDE RECORDS SUMMARY | 2025-11-07 11:23 | XMS_ITS | Clinical Summary ---
Author Organization [facility] Address [address] [place] [address] Care Team Providers Care Liquor Clerk Name Role Phone Unavailable Primary Care Provider Unavailabl e Source Comments [facility],non-owned Affiliates and Associated Physician Practices is amultiple site organization consisting of ambulatory clinics and hospital sitesin [place], [place], [place] and [place]. This disclosure is being madepursuant to the Care Everywhere program and may not contain all information available regarding this patient. Last updated 18.[facility] Allergies No known active allergies Active Problems Problem Noted Date Diagnosed Date Encounter for supervision of normal in third trimester 07/11/2020 Overview (07/11/2020): A+ Sequential screen #2: Negative, CF screen: Negative echogenic bowel 06/16/2020 Social History Tobacco Use Types Packs/Day Years Used Date Smoking Tobacco: Never Assessed Comments No Sex and Gender Information Value Date Recorded Sex Assigned at Not on file Legal Sex Female 10:46 AM CDT Gender Identity Not on file Sexual Orientation Not on file Last Filed Vital Signs Vital Sign Reading Time Taken Comments Blood Pressure - - Pulse - - Temperature 36.3 C (97.4 F) 07/15/2020 11:19 AM CDT Respiratory Rate - - Oxygen Saturation - - Inhaled Oxygen Concentration - - Weight - - Height - - Body Mass Index - - Plan of Treatment Health Maintenance Due Date Last Done Comments HIV SCREENING 2009 HEPATITIS C SCREENING 07/31/2012 DTAP/TDAP/TD VACCINES (1 - Tdap) 2013 HEPATITIS B VACCINE (1 of 3 - 19+ 3-dose series) 2013 HPV VACCINE (1 - 3-dose SCDM series) 2021 DEPRESSION SCREENING 11/14/2024 COVID-19 VACCINE (1 - 2024-2 6 season) 2025 INFLUENZA VACCINE (#1) 2025 ZOSTER VACCINE (1 of 2) 2044 HIB VACCINE Aged Out No longer eligi ble based on patient's age to complete this topic MENINGOCOCCAL (Group B) VACC INE SHARED DECISION-MAKING Aged Out No longer eligibl e based on patient's age to complete this topic MENINGOCOCCAL GROUPS A/C/Y/W VACCINE Aged Out No longer eligible b ased on patient's age to complete this topic PNEUMOCOCCAL VACCINE Aged Out No long er eligible based on patient's age to complete this topic Insurance [facility]
--- OUTSIDE RECORDS SUMMARY | 2025-11-07 11:23 | XMS_ITS | Patient Health Record ---
Author Organization [facility] Address [address] [place] [address] Phone [phone] Care Team Providers Care Claims Director Name Role Phone Miki Gamble APRN Primary Care Provider Allergies No Known Allergies Reason For Referral No Information Medications Medication SIG (Take, Route, Frequency, Duration) Notes Start Date End Date Diagnosis (ICD Code) Status Sertraline HCl 100 MG Tablet 1 tablet Orally Once a day; Duration: 30 days 05/28/2022 Generalized anxiety disorder (ICD_10 - F41.1) Active ARIPiprazole 2 MG Tablet 1 tablet Orally Once a day; Duration: 30 days 06/22/2022 Major depressive disorder, recurrent episode, moderate (ICD_10 - F33.1) Active buPROPion HCl ER (XL) 150 MG Tablet Extended Release 24 Hour 1 tablet in the morning Orally Once a day; Duration: 30 day(s) 09/24/2022 Major depressive disorder, recurrent episode, moderate (ICD_10 - F33.1) Active Social History Tobacco Use: Social History Observation Description Date Details (start date - stop date) Unknown Sex Observation Social History Observation Description Sex Observation Female Sexual Orientation Social History Observation Description Sexual Orientation Straight or heterose xual Gender Identity Social History Observation Description Gender Identity Female Social History Miscellaneous Social Info Question Answer Notes Method of learning: Preferred method of learning: Reading,Discussion Primary Social History Social Info Question Answer Notes Tobacco Use - do not use Tobacco Use: Status Reviewed with Patient Tobacco Use Status Reviewed on: 05/28/2022 Illicit Substance Usage Illicit Substance Usage: Yes Interested in quitting: Yes Substance Used: Cocaine Alcohol Use Alcohol Use Frequency: Monthly or less Tobacco Use: Social Info Question Answer Notes Dont use, Tobacco Use/Smoking Are you a Uses tobacco in other forms Additional Findings: Tobacco User e-Cigarette Problems Problem Type SNOMED Code ICD Code Dates Problem Status W/U Status Risk Notes Problem Generalized anxiety disorder (65304566) Generalized anxiety disorder (F41.1) Added On:2021 Active confirmed Problem Moderate recurrent major depression (19380862) Major depressive disorder, recurrent episode, moderate (F33.1) Added On:2021 Active confirmed Problem Cocaine abuse (14848349) Cocaine abuse (F14.10) Added On:2021 Active confirmed Problem Alcohol abuse (38025430) Alcohol consumption binge drinking (F10.10) Added On:2021 Active confirmed Plan Of Treatment Pending Test Test Name Order Date Test, Urine 05/28/2022 12 Panel Urine Drug Screen 05/28/2022 Insurance Providers Payer Name Payer Address Payer Phone Subscriber Number Group Number Insured Name Patient Relationship to Insured Coverage Start Date Coverage End Date [employer] [address] [place] [address] [id number] Melissa Crockett Self - patient is the insured 2 [employer] [address] [place] [address] [id number] Melissa Crockett Self - patient is the insured 2 Medical (General) History Surgical History Surgery Date(Month/Year) Tubal ligation 2020 c-sectiom 2019 Hospitalization History Reason Date(Month/Year)
--- OUTSIDE RECORDS SUMMARY | 2025-11-07 11:23 | XMS_ITS | Data Portability ---
Author Organization [facility] Address [address] [place] [address] Care Team Providers Care Licensed Journeyman Electrician Name Role Phone VARSHATRACY VARGAS Primary Care Provider [phone] Assessment Encounter Date Assessment Date Assessment LastModified by Organization Details LastModified Time 09/06/2023 09/06/2023 Annual gynecological exam performed. Patient will come back in a year unless there are new symptoms. [email or web address] Not available 09/06/2023 09:34:22 10/04/2024 10/04/2024 Annual gynecological exam performed. Patient will come back in a year unless there are new symptoms. [email or web address] Not available 10/04/2024 09:47:31 Plan of Treatment Reminders Order Date Submit Date Provider Last Modified By Organization Details Last Modified Time Details Appointments None recorded. Lab hbcab (hepatitis B core Ab) igm, serum 2023 [facility] (Lab), [address], [place], [address], 4 15:46:06 HBsAg (hepatitis B surface Ag), serum 2023 024 [facility] (Lab), [address], [place], [address], 4 15:46:04 hepatitis C virus Ab, serum 2023 024 [facility] (Lab), [address], [place], [address], 4 15:46:05 HIV 1+2 AB + HIV 1 p24 Ag, qualitative immunoassay , serum 2023 024 [facility] (Lab), [address], [place], [address], 4 15:46:05 RPR (rapid plasma reagin), serum 2023 024 [facility] (Lab), [address], [place], [address], 4 15:46:05 Referral None recorded. Procedures None recorded. Surgeries None recorded. Imaging None recorded. Medication Orders None recorded. Patient TargetsNo targets recorded. Patient InstructionsNo instructions recorded. Reason for Referral None Reported. Results Created Date Observation Date Name Description Value Unit Range Abnormal Flag Note LastModifiedBy Organization Detail LastModifiedTime 12/24/1912/24/2020 US, obste tric, 2nd or 3rd naty giraldo md interpretati on Not Available [facility] [address], [place], [address], 04/11/2020 12:12:34 12/28/19 21 12/28/2020 US, doppl er, umbil ical arter y veloc imetr y interpretati on Not Available [facility] [address], [place], [address], 05/06/2020 11:37:36 12/28/1912/28/2020 US, bradley alarcon, colletteo w-alexey ruiz interpretati on Not Available [facility] [address], [place], [address], 05/06/2020 11:37:33 01/01/2001/01/2021 US, doppl er, umbil ical arter y veloc imetr y interpretati on Not Available [facility] [address], [place], [address], 06/03/2020 10:35:10 01/01/20 21 01/01/2021 US, mary anne emmett alarcon w-up interpretati on Not Available V[facility] [address], [place], [address], 06/03/2020 10:35:07 09/06/20 23 09/06/2023 IMAGE GUIDE D PAP, REFLE X HPV IF ASCUS ONLY image guided Pap, reflex HPV ASCUS only SEE RESULT S BELOW CASE REPOR T: Cytol ogy Gynec ologi eddie Repor t Case: [id number] Autho holdenlibiaemanuel g Provi garrick: Camille Salvador, SHANNON Colle cted: 09/06 1640 Order ing Locat ion: [place] [facility] Recei cielo: 09/07 0906 First Scree n: Krzysztof Mckenzie , ZARI Rescr een: Gopal Lozano, CT Speci men: Screellie colunga Pap - Image d, Cervi x STATE MENT OF ADEQU ACY: Satis facto ry for evalu ation Trans forma tion zone compo nent absen t The absen ce of an endoc ervic al compo nent was confi rmed by an addit ional lucía ner. FINAL DIAGN OSIS: Negat rossy for Intra epith elial Lesio n or Malnandini rosas (NIL) . Shift in laina sugge stive of bacte rial vagin osis. Elect kristal schrader d by Gopal Lozano, CT on 09/12 at 11:23 AM ----- ----- ----- ----- ----- ----- ----- ----- ----- ----- ----- ----- ----- ----- ----- ----- ----- ---- COMME NT: Slide screellie vicky manua lly due to rejec tion by the Thinp rep Imagi ng Syste m. CLINI EDDIE INFOR MATIO N: Menst rual Statu s: LMP (if appli cable ): Clini eddie Histo ry/Pr eviou s Pap: Type of Neopl dania (if appli cable ): Signi fican t Clini eddie Findi ngs: Other Histo ry: Hormo mickey (if appli cable ): PAP EDUCA ANGEL L NOTE: The Pap Test is a scree keanu test with an inher ent false negat rossy rate. Liqui d-bas ed sampl ing may decre ase, but will not elimi anna, false negat rossy resul ts. A negat rosys resul t does not precl ude the prese nce and/o r devel opmen t of disea se, since the prese nce of abnor mal cells in the sampl e depen ds on the locat ion of the lesio n and sampl ing techn ique. Tata nued regul ar scree keanu is the best metho d of cance r preve ntion . If repor alex cytol ogic findi ng do not corre late with physi eddie and/o r histo rical findi ngs, furth er inves tigat ion is recom mary d, as clini daisy warra nted. Not Available [facility] (Lab) [address], [place], [address], 09/12/2023 12:25:41 09/06/20 23 09/06/2023 TRICH OMONA S VAGIN LUANN (RRNA ) trichomonas vaginalis ribosomal RNA (rrna) Negati ve negati ve Not Available [facility] (Lab) [address] [place], [address], 09/12/2023 12:25:42 09/06/20 23 09/06/2023 CT/GC ([place]) , THINP REP VIAL chlamydia trachomatis, PCR Negati ve negati ve Not Available [facility] (Lab) [address] [place], [address], 09/12/2023 12:25:43 09/06/20 23 09/06/2023 CT/GC ([place]) , THINP REP VIAL neisseria gonorrhoeae, PCR Negati ve negati ve Not Available [facility] (Lab) [address], [place], [address], 09/12/2023 12:25:43 10/04/20 24 10/04/2024 HEPAT ITIS B SURFA CE ANTIG EN hepatitis B surface antigen Non-re active non-re active This assay was perfo rmed using [employer] ratio n reage nts and test kits. Value s obtai vicky with other assay metho ds or kits canno t be used inter longoria eably . Not Available [facility] (Lab) [address], [place], [address], 10/05/2024 15:46:04 10/04/20 24 10/04/2024 HIV 1/2 ANTIG EN/AN TIBOD Y, REFLE X CONFI RMATI ON HIV antigen/anti body Nonrea ctive nonrea ctive HIV-1 antig en and HIV-1 /HIV- 2 antib odies were not detec alex. No labor atory evide nce of HIV infec tion. Not Available [facility] (Lab) [address], [place], [address], 10/05/2024 15:46:05 10/04/20 24 10/04/2024 HEPAT ITIS C ANTIB MATA SCREE N, REFLE X TO CONFI RMATI ON hepatitis C antibody Non-re active non-re active Antib odies to HCV Not Detec alex, does not exclu de the possi bilit y of expos ure to HCV. Not Available [facility] (Lab) [address], [place], [address], 10/05/2024 15:46:05 10/04/20 24 10/04/2024 RPR SCREE N, REFLE X TITER /CONF IRMAT ION RPR screen Nonrea ctive nonrea ctive Not Available [facility] (Lab) [address], [place], [address], 10/05/2024 15:46:05 10/04/20 24 10/04/2024 HEPAT ITIS B CORE, IGM hepatitis B core IgM antibody Non-re active non-re active IgM anti- HBc not detec alex. Does not exclu de the possi bilit y of expos ure to or infec tion with HBV. Not Available [facility] (Lab) [address], [place], [address], 10/05/2024 15:46:06 10/04/20 24 10/04/2024 WOMEN 'S HEALT H SWAB PLUS, LUCY bacterial vaginosis (bv), tma Positi ve negati ve abnormal Not Available [facility] (Lab) [address], [place], [address], 10/06/2024 14:08:40 10/04/20 24 10/04/2024 WOMEN 'S HEALT H SWAB PLUS, LUCY yang species, tma Negati ve negati ve Not Available [facility] (Lab) [address], [place], [address], 10/06/2024 14:08:40 10/04/20 24 10/04/2024 WOMEN 'S HEALT H SWAB PLUS, LUCY yang glabrata, tma Negati ve negati ve Not Available [facility] (Lab) [address], [place], [address], 10/06/2024 14:08:40 10/04/20 24 10/04/2024 WOMEN 'S HEALT H SWAB PLUS, LUCY trichomonas vaginalis, tma Negati ve negati ve Not Available [facility] (Lab) [address], [place], [address], 10/06/2024 14:08:40 10/04/20 24 10/04/2024 WOMEN 'S HEALT H SWAB PLUS, LUCY chlamydia trachomatis, PCR Negati ve negati ve Not Available [facility] (Lab) [address] [place], [address], 10/06/2024 14:08:40 10/04/20 24 10/04/2024 WOMEN 'S HEALT H SWAB PLUS, LUCY neisseria gonorrhoeae, PCR Negati ve negati ve Bacte rial vagin osis detec ts the follo wing bacte delma assoc iated with bacte rial vagin osis (BV): Lacto bacil colby (L. gasse ri, L. crisp atus and L. jense eddie), Gardn erell a vagin luann, and Atopo bium vagin ae. A singl e quali tativ e resul t is repor alex base on instr ument softw are to deter mine BV posit rossy or negat rossy statu s. The [facility] speci es group tests for C. albic ans, C. tropi calis , C. parap ольга is, C. dubli niens is. Testi ng is perfo rmed using the Trans cript ion Media alex Ampli ficat ion metho d. Tests for Haley da glabr gary, Trich omona s vagin luann, Chlam ydia trach omati s, and Neiss eria gonor rhoea e are also inclu ded in this panel . Not Available [facility] (Lab) [address], [place], [address], 10/06/2024 14:08:40 Result Notes None recorded. Problems Name Problem SNOMED Code Status Onset Date Resolution Date Notes Provider Name and Address Organization Details Recorded Time Bowel problem 964212601 Completed mild echogeni c bowel - MFM 07/15/20 f/u u/s for anatomy and growth - echogeni c bowel not seen on 06/20 u/s. Kaylin Stinson [facility] 0 16:36:06 Complete breech presenta tion [id number] Completed Csection Kaylin Stinson [facility] 0 16:36:06 Pregnanc y [id number] Completed 201909/10/2020 Kiko Simmons MD [address], [place], [address], [facility] 0 14:34:54 Problem Notes None recorded. Procedures Surgical History Date Name Laterality Status Provider Name and Address Organization Details Recorded Time 09/06/20 23 Date of Last Pap Smear completed Beatriz Pelayo [facility] 09/06/2023 15:18:16 08/15/20 20 SECTION (SURG) completed Claudia Garber [facility] 04/28/2021 12:32:14 11/14/19 20 Tubal Ligation completed Beatriz Pelayo [facility] 09/06/2023 09:36:20 Imaging Results None recorded. Procedure Notes None recorded. Medical Equipment None Reported. Allergies No known drug allergies Medications Name Sig Start Date Stop Date Status Note LastModified by Organization Details LastModified Time celecoxib 200 mg capsule take one capsule by oral route the night before and 2 capsules by mouth the morning of procedur e 04/11 completed Not Available Not Available Not Available Mirena 21 mcg/24 hr (up to 8 years) 52 mg intrauter ine device 09/11 completed Prescrib ed Elsewher e: Yes Loca tion: [facility] odify By: farhana z Zahira clark DateTime : 07/28/20 17 08:30:00 AM Not Available Not Available Not Available hydrocodo ne 5 mg-acetam inophen 325 mg tablet take 2 tablets by oral route 2 hours before procedur e 08/22 completed Not Available Not Available Not Available ondansetr on HCl 8 mg tablet take 1 tablet by oral route every 8 hours as needed for nausea 04/11 completed Not Available Not Available Not Available metronida zole 0.75 % (37.5 mg/5 gram) vaginal gel Insert 1 applicat orful every day by vaginal route at bedtime for 5 days. 2023 active Not Available Not Available Not Avai lable sertralin e 100 mg tablet TAKE 1 TABLET BY MOUTH EVERY DAY 09/06 completed Not Available Not Available Not Available cyprohept adine 4 mg tablet TAKE 1/2 TO 1 TABLET BY MOUTH EVERY NIGHT AT BEDTIME NEEDED 09/06 completed Not Available Not Available Not Available cephalexi n 500 mg capsule Take one capsule by oral route every 12 hours 08/22 completed Not Available Not Available Not Available buspirone 10 mg tablet TAKE 1 TABLET BY MOUTH EVERY DAY active Not Available Not Available No t Available diazepam 10 mg tablet take 1 tablet by oral route one hour before procedur e 02/12 completed Prescrib ed Elsewher e: No Locat ion: [facility] M odify By: shawn clark DateTime : 09/12/20 09:58:38 AM Not Available Not Available Not Available sertralin e 50 mg tablet TAKE 1 TABLET BY MOUTH EVERY DAY 10/04 completed Not Available Not Available Not Available bupropion HCl XL 150 mg 24 hr tablet, extended release TAKE 1 TABLET BY MOUTH EVERY DAY active Not Available Not Available No t Available buspirone 10/04 completed Not Available Not Available Not Available 08/22 completed Not Available Not Available Not Available bupropion HCl (bulk) 10/04 completed Not Available Not Available Not Available aripipraz ole 2 mg tablet TAKE 1 TABLET BY MOUTH EVERY DAY 09/06 completed Not Available Not Available Not Available Vitals Date Recorded Body height Body mass index (BMI) Body weight Systolic And Diastolic Provider Name and Address Organization Details Last Updated DateTime 09/06/2023 157.48 cm 24.9 kg/m2 22939.56 g 107/69 mm[Hg] Beatriz Pelayo [facility] 09/06/2023 09:35:27 Date Recorded Body height Body mass index (BMI) Body weight Systolic And Diastolic Provider Name and Address Organization Details Last Updated DateTime 10/04/2024 157.48 cm 23.6 kg/m2 50401.42 g 104/70 mm[Hg] Delia Montana [facility] 10/04/2024 09:51:19 Date Recorded Body height Body mass index (BMI) Body weight Systolic And Diastolic Provider Name and Address Organization Details Last Updated DateTime 10/07/2020 157.48 cm 22.7 kg/m2 20022.45 g 116/80 mm[Hg] Lidia Cherry [facility] 10/07/2020 14:32:21 Date Recorded Body height Body mass index (BMI) Body weight Systolic And Diastolic Provider Name and Address Organization Details Last Updated DateTime 10/22/2020 157.48 cm 22.9 kg/m2 34243.05 g 111/63 mm[Hg] Lidia Cherry [facility] 10/22/2020 14:02:56 Social History Question Answer Notes LastModified by Organizat ion Details LastModified Time Tobacco Smoking Status Former Smoker Beatriz Pierce pat, [facility] 09/06/2023 09:35:45 Are You Blind Or Do You Have Difficulty Seeing? No [email or web address] Information n ot available 09/06/2023 What Is Your Level Of Caffeine Consumption? Moderate [email or web address] Information not available 09/06/2023 In The 14 Days Before Symptom Onset, Have You Had Close Contact With A Laboratory-confirm ed COVID-19 While That Case Was Ill? No [email or web address] Information n ot available 09/06/2023 In The 14 Days Before Symptom Onset, Have You Had Close Contact With A Person Who Is Under Investigation For COVID-19 While That Person Was Ill? No Information not available 09/06/2023 Have You Been To An Area Known To Be High Risk For COVID-19? No [email or web address] Information not available 09/06/2023 Are You Deaf Or Do You Have Serious Difficulty Hearing? No [email or web address] Information not available 09/06/2023 What Type Of Diet Are You Following? REGULAR [email or web address] Information n ot available 09/06/2023 What Is The Highest Grade Or Level Of School You Have Completed Or The Highest Degree You Have Received? [id number] Information not available 09/06/2023 Are There Any Guns Present In Your Home? No [email or web address] Information not available 09/06/2023 What Was The Date Of Your Most Recent Tobacco Screening? 09/06/2023 [email or web address] Information not available 09/06/2023 Have You Ever Been Counseled For Unhealthy Alcohol Use? No [email or web address] Information not available 09/06/2023 Do You Use Your Seat Belt Or Car Seat Routinely? Yes [email or web address] Information not available 09/06/2023 Do You Have Smoke And Carbon Monoxide Detectors In Your Home? Yes [email or web address] Information not available 09/06/2023 How Much Tobacco Do You Smoke? No [email or web address] Information not available 06/03/2020 Do You Use Sunscreen Routinely? No [email or web address] Information not available 09/06/2023 Have You Used IV Drugs? No [email or web address] Information not available 09/06/2023 Do You Have Difficulty Walking Or Climbing Stairs? No [email or web address] Information not available 09/06/2023 Sex: Unknown Functional Status Question Answer Note LastModified by Organizat ion Details LastModified Time Do you use any illicit or recreational drugs? No Information not available 09/06/2023 What is your level of alcohol consumption? Occasional [email or web address] Information not available 05/06/2020 Do you or have you ever used smokeless tobacco? Never used smokeless tobacco [email or web address] Information not available 09/06/2023 Are you able to walk independently without assistance or assistive devices? YESWOREST [email or web address] Information not available 09/06/2023 Are you able to care for yourself independently? Yes [email or web address] Information not available 09/06/2023 Do you have difficulty dressing, bathing, grooming, or toileting? No [email or web address] Information not available 09/06/2023 Do you or have you ever used e-cigarettes or vape? Never used electronic cigarettes [email or web address] Information not available 09/06/2023 What is your exercise level? Occasional [email or web address] Information not available 05/06/2020 Mental Status Question Answer Note LastModified by Organization D etails LastModified Time Do you feel stressed (tense, restless, nervous, or anxious, or unable to sleep at night)? [id number] Information not available 09/06/2023 Family History Relationship Description Onset Age of this Age Resolved Age Notes LastModified by Organization Details LastModified Time Father No current problems or disability [email or web address] Not available 10/04 09:52:18 Mother No current problems or disability Not available 10/04 09:52:18 Medical History Condition Response Allergies (Food, seasonal, environmental ) N Other N Drug/Latex Allergies/Reactions N Breast Cancer N Blood Transfusion N Lung Disease N Dermatologic Disorders N Defects or Inherited Disease N Breast Problem N Gestational Diabetes N Hematologic disorders N Anesthesia Complications N History of STI N Deep Vein Thrombosis N Polycystic ovary syndrome N Anxiety Disorder Y Autoimmune disease N Arthritis N Polyps N Infertility N History of abnormal pap N Acid Reflux (GERD) N Cancer N Varicosities N Stroke N Neurologic/Epilepsy N Endometriosis N High Cholesterol N Headaches N Fibromyalgia N Kidney Disease N Heart Problems N Thyroid Problems N Kidney or Bladder Problems N GI Problems N Eating Disorder N Anemia N Art (IVF or FET) N Psychiatric Illness N Ovarian Cancer N Diabetes N Pulmonary (TB, Asthma) N Hepatitis/Liver Disease N No Past Medical History N Eczema N Urinary Tract Infection N Abuse/Domestic Violence N Asthma N Trauma/Violence N Depression/ depression Y Heart Disease N Pre-Eclampsia N Hypertension N Osteoporosis N Thrombophilias N Gynecological History Statement/Question Response Date of Last Mammogram Date of LMP 09/13/2024 N Date of DEXA bone scan HPV Vaccine N Date of Last Pap Smear 09/06/2023 Current Control Method Tubal Ligat ion LMP Unknown N Obstetrics History GPAL:G 2 P 2 0 0 2 Type Value Full Term 2 Living 2 Total 2 Past Encounters Encounter ID Performer Location Encounter Start Date Encounter Closed Date Diagnosis/Indication Diagnosis SNOMED-CT Code Diagnosis ICD10 Code Diagnosis IMO Codes Diagnosis Note [id number] Kiko Simmons MD [facility] [address],[place] [address] 04/11/2020 10:48:06 04/11/2020 12:45:54 [id number] Kiko Simmons MD [facility] [address],[place] [address] 04/11/2020 10:49:08 04/11/2020 13:14:10 screening for malformation [id number] Z36.3 [id number] [address] [address] 05/06/2020 11:03:44 05/06/2020 12:19:31 Routine care 302327166 Z34.92 [id number] Kiko Simmons MD [facility] [address],[place] [address] 05/06/2020 11:05:48 05/06/2020 11:48:21 Small for gestational age fetus 374006728 O36.5920 Z3A.24 [id number] Kiko Simmons MD [facility] [address],[place] [address] 06/03/2020 09:59:35 06/03/2020 10:37:09 Small for gestational age fetus 490209195 O36.5930 O35.8XX0 Z3A.28 [id number] Deb Bird, [facility] [address],[place] [address] 06/03/2020 10:00:15 06/03/2020 11:33:16 Routine care 331380104 Z34.92 [id number] Kiko Simmons MD [facility] [address],[place] [address] 06/17/2020 10:45:08 06/17/2020 11:29:57 Routine care 333852125 Z34.83 [id number] Rosaura Vazquez [facility] [address],[place] [address] 07/02/2020 11:31:19 07/02/2020 12:39:08 Routine care 683648829 Z34.93 [id number] Deb Bird, [facility] [address],[place] [address] 07/15/2020 11:24:13 07/15/2020 11:56:26 Routine care 098845213 Z34.92 [id number] Kiko Simmons MD [facility] [address],[place] [address] 07/29/2020 11:11:58 07/30/2020 14:40:46 Routine care 629227323 Z34.83 [id number] MD Nichole Cowart [address],[place] [address] 2020 14:30:07 2020 15:12:00 Routine care 869197646 Z34.83 [id number] MD Nichole Cowart [address],[place] [address] 08/22/2020 09:25:16 08/22/2020 09:25:58 [id number] Kiko Simmons MD [facility] [address],[place] [address] 08/22/2020 13:50:57 08/22/2020 14:24:32 Postoperative visit [id number] Z09 This patient is a 37-year-ol d female who presents for postop follow-up. She is 1 week postop from a delivery. Her incision is clean dry and intact. She has no complaints . Her bleeding is minimal. She denies any nausea, vomiting, fever, chills. She denies any chest pain or shortness of breath. Her baby is doing well. Her mood is good. [id number] Kiko Simmons MD [facility] [address],[place] [address] 09/10/2020 13:56:49 09/10/2020 15:00:51 care 742910379 Z39.2 Contracept ion care management 929616391 Z30.9 [id number] Kiko Simmons MD [facility] [address],[place] [address] 10/07/2020 14:27:51 10/07/2020 16:29:53 Female sterilization 06052900 Z30.2 This patient is an 25 year-old female who desires sterilizat ion. We both agreed to perform laparoscop ic bilateral tubal ligation. She understand s the risks, benefits, and alternativ es. She is completed the informed consent process and is ready to proceed. [id number] Kiko Simmons MD [facility] [address],[place] [address] 10/13/2020 18:53:19 10/13/2020 18:54:31 [id number] Kiko Simmons MD [facility] [address],[place] [address] 10/22/2020 13:59:04 10/22/2020 14:24:05 Postoperative care 704109494 Z48.89 This patient is a 25-year-ol d female who presents for postop follow-up. She is 1 week postop from a laparoscop ic bilateral tubal ligation. Her incisions are clean dry and intact. She has no complaints . She is recovering normally. She will follow up as needed. [id number] GWEN Bee [facility] [address] [address] 09/06/2023 09:19:13 09/06/2023 10:30:56 Gynecologic examination 59043493 Z01.419 WWEBC - BTLno hx of abnormal papspap updated todaygc/ct /trich testing added to papblood STI panel declinedRT C in 1 yr or sooner if needed Take Calcium with Vitamin D daily if not receiving in daily diet.It is strongly advised to have an annual flu shot and up can obtain at most pharmacies . If you have not had a TDap shot in the last 10 years you should obtain one as well.Discu ssed with patient & provided with informatio n regarding Gardisil vaccine to prevent the 4 strains for HPV that cause cervical cancer if under age 26.Encoura ge safe sexual practices, to use condoms and limit partners if not already in a monogamous relationsh ip.Do monthly self breast exams.Have mammogram yearly or every other year depending on family history. BRCA testing is now available for patients with strong genetic history of female cancer. If interested contact the office.Eng age in daily exercise of low impact aerobic exercise 45-60 minutes 4-5 times weekly. Avoid tobacco and illicit drugs as well as using moderation with alcohol intake less than 1-2 8 oz beverages daily. This lifestyle behavior pattern will lead to less health conditions and longer life span. If BMI greater than 25 weight watchers or dietary consult advised.Andi garrison received above instructio ns, and questions have been answered. If you have any questions please call or respond to this email.Rosalind nance was made aware of the patient portal and may obtain a paper copy of today's plan if desired. Venereal d isease screening [id number] Z11.3 [id number] GWEN Bee Hale [address] [address] 10/04/2024 09:43:57 10/04/2024 10:17:26 Gynecologic examination [id number] Z11.3 WWE[facility] - BTLno hx of abnormal papsno pap done today, paps Q3-5yrs unless otherwise indicatedg c/ct/trich testing sentHIV/He p B&C/Syphil is testing ordered per pt requestRTC in 1 yr or sooner if needed Take Calcium with Vitamin D daily if not receiving in daily diet.It is strongly advised to have an annual flu shot and up can obtain at most pharmacies . If you have not had a TDap shot in the last 10 years you should obtain one as well.Discu ssed with patient & provided with informatio n regarding the HPV vaccine if applicable . Encourage safe sexual practices, to use condoms and limit partners if not already in a monogamous relationsh ip.Do monthly self breast exams. BRCA testing is now available for patients with strong genetic history of female cancer. If interested contact the office.Eng age in regular exercise. Avoid tobacco and illicit drugs. This lifestyle behavior pattern will lead to less health conditions and longer life span. If BMI greater than 25 dietary consult advised.Andi garrison received above instructio ns, and questions have been answered. Venereal d isease screening [id number] Z11.3 Sexually t ransmitted infectious disease [id number] A64 Health Concerns Section Related Observation LastModified by Organization Detai ls LastModified Time None Recorded Concern Status LastModified by Organization Details LastModified Time None Recorded Advance Directives Directive None Recorded Payers Insurance Date Sequence Insurance Name Policy Number Policy Garcia Covered Member ID Garcia Member ID Guarantor Name 10/08/2024 1 [facility] (PPO) [id number] Melissa Crockett [id number] Melissa Crockett 09/16/2023 1 [place] Ericka Crockett [id number] Melissa Crockett 09/16/2023 1 [facility] (MEDICAID HMO) [id number] Ericka Crockett [id number] Melissa Crockett 08/15/2020 1 [facility] (PPO) [id number] Jayne Crockett [id number] Melissa Crockett Notes Date Note Type Note Provider Name and Address Organization Details Recorded Time 0 text/html This patient is a 25-year-old female who presents for preoperative care. The patient would like sterilization and we have agreed to perform laparoscopic bilateral tubal ligation. We have discussed alternatives in detail. The patient understands the procedure. The procedure was described to the patient in great detail. the patient also understands the risks. The risks were also explained in detail. She understands that injuries May occur during surgery. She understands these injuries can result in hospitalization, more surgery, and severe illness. She understands there is risk of hemorrhage and infection. Kiko Simmons MD [address], [place], [address], [facility] 10/07/2020 15:00:06 0 text/html This patient is a 25-year-old female who presents for postop follow-up. She is 1 week postop from a laparoscopic bilateral tubal ligation. Her incisions are clean dry and intact. She has no complaints. She is recovering normally. She will follow up as needed.e Kiko Simmons MD [address], [place], [address], [facility] 10/22/2020 14:24:03 3 text/html Annual GYNReported by PatientGenitourinary symptomsFor menstrual cycle, patient reportsnormal menses. For urinary symptoms, patient reportsno hematuriaandno incontinence. For vulva, patient reportsno genital lesion. For vagina, patient reportsnormal vaginal discharge.Breast symptomsFor breast, patient reportsno breast pain,no breast lump, andno nipple discharge.ContraceptionFo r current contraception, patient reportssatisfied with current contraceptionandtubal ligation.Endocrine symptomsFor sexual complaints, patient reportsno sexual complaints,no pain during intercourse, andnormal libido. For menopausal symptoms, patient reportsno menopausal symptomsandnormal vaginal lubrication.Psychological symptomsFor psychological symptoms, patient reportsno depression,no anxiety, andno pmdd.Preventative measuresFor preventive measures, patient reportsencourage self breast examination,encourage regular exercise,encourage no tobacco use, andencourage regular mammograms starting age 40.no hx of abnormal papslast pap 2019 GWEN Bee [address], [place], [address], [facility] 09/06/2023 10:17:44 4 text/html Annual GYNReported by PatientGenitourinary symptomsFor menstrual cycle, patient reportsnormal menses. For urinary symptoms, patient reportsno hematuriaandno incontinence. For vulva, patient reportsno genital lesion. For vagina, patient reportsnormal vaginal discharge.Breast symptomsFor breast, patient reportsno breast pain,no breast lump, andno nipple discharge.ContraceptionFo r current contraception, patient reportssatisfied with current contraceptionandtubal ligation.Endocrine symptomsFor sexual complaints, patient reportsno sexual complaints,no pain during intercourse, andnormal libido. For menopausal symptoms, patient reportsno menopausal symptomsandnormal vaginal lubrication.Psychological symptomsFor psychological symptoms, patient reportsno depression,no anxiety, andno pmdd.Preventative measuresFor preventive measures, patient reportsencourage self breast examination,encourage regular exercise,encourage no tobacco use, andencourage regular mammograms starting age 40.29yo [facility] - BTLno h/o abnormal papslast pap 08/2023 : nilmwould like STI testing GWEN Bee [address], [place], [address], [facility] 10/04/2024 10:07:44 OBGyn Episode Ob Episode Information Episode Created Date Number of Fetuses Patient Bloodtype Patient rh Status Prepregnancy Weight lbs Domestic Partner Domestic Partner Phone Father Name Hat Sprayer Status 04/11/20 20 1 A Positive 113 CLOSED Fetus Data First Name Last Name Admitted to NICU Weight (g) Sex Living Outcome Pediatric Complications Fetus ID Race Codes Race Delivery Type Kim 3543.68 75 F true Full Term breech, mild echogenic bowel on u/s 1861 Primary Problems Problem Notes Problem Name Start Date End Date Resolution Snomed Code Not e Complete breech presentation [id number] Csection Bowel problem [id number] mild e chogenic bowel - MFM 07/15/20 f/u u/s for anatomy and growth - echogenic bowel not seen on 06/20 u/s. Ernesto Calculation Initial Ernesto Date Initial Exam Date Initial Exam Provider Initial Ultrasound Date Last Menstrual Period Date Ultra Sound Weeks Gestation 08/22/2020 04/11/2020 01/09/2020 11/16/2019 7 Eighteen To Twenty Week [place] Update Ultra Sound Date Fundal Height At Umbil Quickening Date Ultra Sound Latest Weeks Gestation Final Ernesto Confirmed By Final Ernesto Confirmed Date Final Ernesto Date Ultra Sound Latest Days Gestation 0 [email or web address] 05/02/2020 08/22/20 20 0 Pre- Flowsheet Flowsheet Date 04/11/2020 Youngblood Score Blood Edema Fundus Height Fundus Units Glucose Ketones Leukocytes Nitrite Labor Signs Protein Cervic Dilation Cervic Effacement Cervic Station 21 trace Type Weight in lbs Pre/Post Dialysis Refused Weight 120.424844578900 BP Diastolic BP Location Tested BP Systolic BP Type 75 118 Fetus Heart Rate Present A 164 Fetus Movement A Yes Comments Multipara at 21 weeks gestat ion with some cramping. She was told to hydrate. She is to contact us with more painful contractions. Flowsheet Date 05/06/2020 Youngblood Score Blood Edema Fundus Height Fundus Units Glucose Ketones Leukocytes Nitrite Labor Signs Protein Cervic Dilation Cervic Effacement Cervic Station Type Weight in lbs Pre/Post Dialysis Refused BP Diastolic BP Location Tested BP Systolic BP Type Fetus Heart Rate Present Fetus Movement Comments Flowsheet Date 05/06/2020 Youngblood Score Blood Edema Fundus Height Fundus Units Glucose Ketones Leukocytes Nitrite Labor Signs Protein Cervic Dilation Cervic Effacement Cervic Station neg none trace Type Weight in lbs Pre/Post Dialysis Refused Weight 124.247600556809 BP Diastolic BP Location Tested BP Systolic BP Type 67 108 Fetus Heart Rate Present Fetus Movement A Yes Comments PATIENT STATES THAT HAVING B H CONTRACTIONS AND DISCHARGE, increase water, PTL precautions reviewed, efw 15%, s/d ratio wnl, mildly echogenic bowel, f/u rpt in 4 weeks Flowsheet Date 06/03/2020 Youngblood Score Blood Edema Fundus Height Fundus Units Glucose Ketones Leukocytes Nitrite Labor Signs Protein Cervic Dilation Cervic Effacement Cervic Station Type Weight in lbs Pre/Post Dialysis Refused BP Diastolic BP Location Tested BP Systolic BP Type Fetus Heart Rate Present Fetus Movement Comments Flowsheet Date 06/03/2020 Youngblood Score Blood Edema Fundus Height Fundus Units Glucose Ketones Leukocytes Nitrite Labor Signs Protein Cervic Dilation Cervic Effacement Cervic Station neg none trace Type Weight in lbs Pre/Post Dialysis Refused Weight 134.585884947380 BP Diastolic BP Location Tested BP Systolic BP Type 71 116 Fetus Heart Rate Present Fetus Movement A Yes Comments patient states that having B H contractions, GCT today, reviewed ptl precautions, US efw 12%, echogenic bowel still seen refer to MFM Flowsheet Date 02/13/2020 Youngblood Score Blood Edema Fundus Height Fundus Units Glucose Ketones Leukocytes Nitrite Labor Signs Protein Cervic Dilation Cervic Effacement Cervic Station trace 12 Type Weight in lbs Pre/Post Dialysis Refused Weight 105.250867067660 BP Diastolic BP Location Tested BP Systolic BP Type 66 109 sitting Fetus Heart Rate Present A 145 Fetus Movement A No Comments This patient is a 24-year-ol d 2 para 1001 at 12 weeks gestation who presents for initial care. She has no risk factors. She has no problems today. She will return in 4 weeks to continue routine care. Flowsheet Date 06/17/2020 Youngblood Score Blood Edema Fundus Height Fundus Units Glucose Ketones Leukocytes Nitrite Labor Signs Protein Cervic Dilation Cervic Effacement Cervic Station 30 Type Weight in lbs Pre/Post Dialysis Refused Weight 138.235643216563 BP Diastolic BP Location Tested BP Systolic BP Type 72 113 Fetus Heart Rate Present A 145 Fetus Movement A Yes Comments this patient is a 24-year-ol d 2 para 1001 at 30 weeks gestation. She was believed to have some echogenic bowel on ultrasound here at [facility]. She is going to see maternal medicine later this week. We will look out for that report. Flowsheet Date 07/02/2020 Youngblood Score Blood Edema Fundus Height Fundus Units Glucose Ketones Leukocytes Nitrite Labor Signs Protein Cervic Dilation Cervic Effacement Cervic Station 33 trace Type Weight in lbs Pre/Post Dialysis Refused Weight 139.134169360862 BP Diastolic BP Location Tested BP Systolic BP Type 77 L arm 119 sitting Fetus Heart Rate Present A 143 Fetus Movement A Yes Comments Echogenic bowel not seen per mfm. Growth u/s scheduled on 07-15 with mfm. Pt doing well. Will call to schedule pre admit. PTL precautions given. Transverse per vanessa. Flowsheet Date 07/15/2020 Oyungblood Score Blood Edema Fundus Height Fundus Units Glucose Ketones Leukocytes Nitrite Labor Signs Protein Cervic Dilation Cervic Effacement Cervic Station neg none 33 trace Type Weight in lbs Pre/Post Dialysis Refused Weight 143.608804996104 BP Diastolic BP Location Tested BP Systolic BP Type 71 110 Fetus Heart Rate Present A 160 Present Fetus Movement A Yes Comments patient states that having s ome loose stools, pressure. increase in discharge, BH contractions and some pain reviewed PTL precautions, plan gbs at next visit Flowsheet Date 07/29/2020 Youngblood Score Blood Edema Fundus Height Fundus Units Glucose Ketones Leukocytes Nitrite Labor Signs Protein Cervic Dilation Cervic Effacement Cervic Station 36 trace Type Weight in lbs Pre/Post Dialysis Refused Weight 144.976080442093 BP Diastolic BP Location Tested BP Systolic BP Type 71 R arm 114 sitting Fetus Heart Rate Present A 135 Fetus Movement A Yes Comments Flowsheet Date 2020 Youngblood Score Blood Edema Fundus Height Fundus Units Glucose Ketones Leukocytes Nitrite Labor Signs Protein Cervic Dilation Cervic Effacement Cervic Station 38 trace Type Weight in lbs Pre/Post Dialysis Refused Weight 148.565567430618 BP Diastolic BP Location Tested BP Systolic BP Type 77 R arm 120 sitting Fetus Heart Rate Present A 145 Fetus Movement A Yes Comments Flowsheet Date 08/15/2020 Youngblood Score Blood Edema Fundus Height Fundus Units Glucose Ketones Leukocytes Nitrite Labor Signs Protein Cervic Dilation Cervic Effacement Cervic Station Type Weight in lbs Pre/Post Dialysis Refused BP Diastolic BP Location Tested BP Systolic BP Type Fetus Heart Rate Present Fetus Movement Comments Flowsheet Date 08/22/2020 Youngblood Score Blood Edema Fundus Height Fundus Units Glucose Ketones Leukocytes Nitrite Labor Signs Protein Cervic Dilation Cervic Effacement Cervic Station Type Weight in lbs Pre/Post Dialysis Refused Weight 126.25065285643 BP Diastolic BP Location Tested BP Systolic BP Type 79 124 Fetus Heart Rate Present Fetus Movement Comments Flowsheet Date 09/10/2020 Youngblood Score Blood Edema Fundus Height Fundus Units Glucose Ketones Leukocytes Nitrite Labor Signs Protein Cervic Dilation Cervic Effacement Cervic Station Type Weight in lbs Pre/Post Dialysis Refused Weight 125.613838532254 BP Diastolic BP Location Tested BP Systolic BP Type 74 R arm 115 sitting Fetus Heart Rate Present Fetus Movement Comments Flowsheet Date 10/13/2020 Youngblood Score Blood Edema Fundus Height Fundus Units Glucose Ketones Leukocytes Nitrite Labor Signs Protein Cervic Dilation Cervic Effacement Cervic Station Type Weight in lbs Pre/Post Dialysis Refused BP Diastolic BP Location Tested BP Systolic BP Type Fetus Heart Rate Present Fetus Movement Comments Menstrual History Last Menstrual Date Menses Monthly On Bcp Conception Prior Menses Frequency Hcg Plus Date Menarche Onset Age 0111/16/2019 Genetic Screening And Infection History Question Response Note Mental Retardation/Autism false Patient's Age Will Be 35 Years Or Older At Estim ated Date of Delivery false Thalassemia ([place] Citizen, Azerbaijani, Mediterranean, Or Background): MCV < 80 false Neural Tube Defect (Meningomyelocele, Spina Bifi da, Or Anencephaly) false Congenital Heart Defect false Down Syndrome false Alejandro-Sachs (eg, Pentecostal, Cajun, Slovak-Botswanan) f alse Carmelina Disease false Sickle Cell Disease Or Trait () false Hemophilia Or Other Blood Disorders false Muscular Dystrophy false Cystic Fibrosis false Stark's Chorea false Intellectual Disability/Autism false If Yes, Was Person Tested For Fragile X? false Other Inherited Genetic Or Chromosomal Disorder false Maternal Metabolic Disorder (eg, Type 1 Diabetes , PKU) false Patient Or Baby's Father Had A Child With Defects Not Listed Above false Recurrent Loss, Or A Stillbirth false Medications (including Suppl ements, Vitamins, Herbs, OTC Drugs), Illicit/Recreational Drugs, Alcohol false If Yes, Agent(s) And Strength/Dosage false Any Other Genetic History false Live With Someone With TB Or Exposed To TB false Patient Or Partner Has History Of Genital Herpes false Rash Or Viral Illness Since Last Menstrual Perio d false History Of STD, Gonorrhea, Chlamydia, HPV, Syphi lis false Other Infection History false History of HIV false History of Hepatitis false Prior GBS-infected child false Hemoglobinopathy Or Carrier false Other Structural Defect false Recent Travel History Outside of Country false Delivery Information Delivery Date Delivery Type Labor Anesthesia Weeks Gestation Incision Type Labor Labor Length Hrs Delivered By Post Complications Tubal Sterilization Discharge Date Comments 0 None Regional-Sp inal 39 Low Transvers e false [email or web address] None Tubal ligation planned, bleeding +/-, mood - good, baby - well Discharge Information Feeding Method Contraceptive Method Maternal HG B and HCT Levels Bottle Ob Episode Information Episode Created Date Number of Fetuses Patient Bloodtype Patient rh Status Prepregnancy Weight lbs Domestic Partner Domestic Partner Phone Father Name Hat Sprayer Status 05/06/20 20 1 CLOSED Fetus Data First Name Last Name Admitted to NICU Weight (g) Sex Living Outcome Pediatric Complications Fetus ID Race Codes Race Delivery Type 3600.15 [id number] M Full Term 2470 Vaginal Delivery Ernesto Calculation Initial Ernesto Date Initial Exam Date Initial Exam Provider Initial Ultrasound Date Last Menstrual Period Date Ultra Sound Weeks Gestation 0 Eighteen To Twenty Week Ernesto Update Ultra Sound Date Fundal Height At Umbil Quickening Date Ultra Sound Latest Weeks Gestation Final Ernesto Confirmed By Final Ernesto Confirmed Date Final Ernesto Date Ultra Sound Latest Days Gestation 0 0 Menstrual History Last Menstrual Date Menses Monthly On Bcp Conception Prior Menses Frequency Hcg Plus Date Menarche Onset Age Delivery Information Delivery Date Delivery Type Labor Anesthesia Weeks Gestation Incision Type Labor Labor Length Hrs Delivered By Post Complications Tubal Sterilization Discharge Date Comments 3 41 FRANK Discharge Information Feeding Method Contraceptive Method Maternal HG B and HCT Levels Ob Episode Information Episode Created Date Number of Fetuses Patient Bloodtype Patient rh Status Prepregnancy Weight lbs Domestic Partner Domestic Partner Phone Father Name Hat Sprayer Status 08/22/20 20 1 DELETED Ernesto Calculation Initial Ernesto Date Initial Exam Date Initial Exam Provider Initial Ultrasound Date Last Menstrual Period Date Ultra Sound Weeks Gestation 0 Eighteen To Twenty Week Ernesto Update Ultra Sound Date Fundal Height At Umbil Quickening Date Ultra Sound Latest Weeks Gestation Final Ernesto Confirmed By Final Ernesto Confirmed Date Final Ernesto Date Ultra Sound Latest Days Gestation 0 0 Menstrual History Last Menstrual Date Menses Monthly On Bcp Conception Prior Menses Frequency Hcg Plus Date Menarche Onset Age Delivery Information Delivery Date Delivery Type Labor Anesthesia Weeks Gestation Incision Type Labor Labor Length Hrs Delivered By Post Complications Tubal Sterilization Discharge Date Comments 0 39 Discharge Information Feeding Method Contraceptive Method Maternal HG B and HCT Levels
[2025-11-07 11:44] LABS: Influenza A QL RT-PCR Negative (Negative); Influenza B QL RT-PCR Negative (Negative); RSV RNA, RT-PCR Negative (Negative); SARS-CoV-2 RNA PCR Negative (Negative)
[2025-11-07] MEDS: DOXYCYCLINE HYCLATE 100 MG TABLET PO (12:07)
[2025-11-07] MEDS: predniSONE 40 MG, predniSONE 10 MG 50 MG PO (12:07)
[2025-11-07 12:20] VITALS: BP 110/69; PULSE 66; RESP 16; TEMP 36.7; O2SAT 99
== END 2025-11-07 12:20 | disposition home or self-care (01) ==
PROVIDERS: Emergency Provider Family Medicine; PCP Nurse Practitioner Family
DX: J40 Bronchitis, not specified as acute or chronic (principal); Z87.891 Personal history of nicotine dependence; Z20.822 Contact with and (suspected) exposure to COVID-19
CPT/HCPCS: 36415; 71045; 80048; 85025; 87637; 99283; A9270; J7512